=== PATIENT | female | born 1945 | race African-American/Black ===

== ENCOUNTER 2018-06-12 23:12 | Emergency (ER) | payer MEDICARE ==
--- NOTE | 2018-06-12 23:47 | ER Document Report ---
ED Hand/Wrist Injury - General Chief Complaint: Finger Injury Stated Complaint: FINGER PAIN Time Seen by Provider: 06/12/18 23:32 Mode of Arrival: Ambulatory Information source: Patient, Relative Notes: Patient is a 72-year-old female that comes to the emergency room brought by her son because her left index finger has a ring that she cannot get off of it. Patient states that it is 3 individual gold ring bands that got stuck on her finger yesterday and she has attempted multiple different ways to get it off and it is not getting better and swelling more and she is in excruciating pain. Patient is a history of hypertension and diabetes and she was afraid she was going to lose her finger. TRAVEL OUTSIDE OF THE [place] IN LAST 30 DAYS: No - HPI Injury to: Index finger Onset: Yesterday Where: Home Timing: Constant, Worse Quality of pain: Fullness, Pressure, Sharp, Stabbing, Throbbing Severity: Severe Pain Level: 5 Context: Swelling - Related Data Allergies/Adverse Reactions: bacitracin Allergy (Verified 06/12/18 23:15) iron Allergy (Verified 06/12/18 23:15) Past Medical History - General Information source: Patient, Relative - Social History Smoking Status: Never Smoker Cigarette use (# per day): No Chew tobacco use (# tins/day): No Smoking Education Provided: No Frequency of alcohol use: None Drug Abuse: None Lives with: Family Family History: Reviewed & Not Pertinent Review of Systems - Review of Systems Constitutional: No symptoms reported EENT: No symptoms reported Cardiovascular: No symptoms reported Respiratory: No symptoms reported Gastrointestinal: No symptoms reported Genitourinary: No symptoms reported Female Genitourinary: No symptoms reported Musculoskeletal: See HPI, Joint pain, Joint swelling Skin: No symptoms reported Hematologic/Lymphatic: No symptoms reported Neurological/Psychological: No symptoms reported -: Yes All other systems reviewed and negative Physical Exam - Vital signs Vitals: Temp Pulse Resp BP Pulse Ox 98.6 F 75 16 218/82 H 95 06/12/18 23:25 06/12/18 23:25 06/12/18 23:25 06/12/18 23:25 06/12/18 23:25 Interpretation: Hypertensive - Notes Notes: PHYSICAL EXAMINATION: GENERAL: Patient is a well-nourished well-developed 78-year-old female who is in moderate to severe distress at time of physical examination. Patient is in such pain that blood pressure is in excess of 218/82 currently. Patient's pain is derived from her left index finger where there is a ring that has gotten stuck on the finger since yesterday and is swollen to almost twice its normal size. HEAD: Atraumatic, normocephalic. LUNGS: Breath sounds clear to auscultation bilaterally and equal. No wheezes rales or rhonchi. HEART: Regular rate and rhythm without murmurs Female : deferred Musculoskeletal: Examination of the area of concern is patient's left index finger. Patient has the 3 rings stuck just below the knuckle. The swelling is severe best. Patient does have some cap refill in the distal tip of the left index finger but it is very slow. It is more than 3 seconds. The distal portion of the left index finger from the ring is cold and swollen and firm. Patient is having difficulty even flexing the tip slightly. NEUROLOGICAL: Normal speech, normal gait. Normal sensory, motor exams PSYCH: Anxious, scared SKIN: Area in question is cold swollen and tender somewhat mottled Course - Re-evaluation Re-evalutation: 06/12/18 23:53 Ring removal procedure Given patient's severe pain and discomfort and her anxiety level after evaluating the amount of swelling to the finger distally. While the nurse went to get the ring cutter I decided to use wire snips found in the office. Since these were very small individual rings and a band of 3 I was able to clip the very first 1 with the wire snaps and with 2 forceps I was then able to do the next one ascending with one snip and separate them the ring with the forceps. And you could see some color starting to come back into the finger. On the last and final snap I was able to do it with 1 sip of the wire cutters and use a forceps to separate it and stretch it out to get it over the knuckle. The rings were made of gold so made it relatively easy to cut and will be relatively easy for a shoulder to get it back into shape. Once the third ring was off patient's finger started to regain color and warmth. After approximately 5 minutes we rechecked a pulse ox on it and it read 98%. Patient' s relief was pretty much instant but took a little time to adjust. Reexam of the finger post 15 minutes shows swelling to be getting slightly better range of motion improving and color looking better. Patient tolerated the removal very well. There were no complications in getting off there was no skin skin broken with the wire steps. Patient feels much better. 06/13/18 00:36 Reexamination the patient after about 45 minutes to an hour after removing the rings shows resting comfortably. Still throbbing a little bit so have ordered her a 5 mg hydrocodone. Her son is driving her home. Patient's blood pressure was in excess of 212/80 on arrival and she then tells that she was unable to take her blood pressure medications this morning and just by her resting here it is on its way down. Though has not made great strides is 190/70 I feel comfortable enough to let her go home without having to treated here. I discussed this with the patient and the son they are in agreement and feel comfortable taking her home and taking her own medications when she gets there. - Vital Signs Vital signs: Temp Pulse Resp BP Pulse Ox 98.6 F 75 16 192/88 H 95 06/12/18 23:25 06/12/18 23:25 06/12/18 23:25 06/12/18 23:53 06/12/18 23:25 Discharge - Discharge Clinical Impression: Ring removal, Ring removal from finger Hypertension Qualifiers: Hypertension type: other secondary hypertension Qualified Code(s): I15.8 - Other secondary hypertension Condition: Stable Disposition: HOME, SELF-CARE Instructions: High Blood Pressure ([facility]) Additional Instructions: I do not have a handout on removing a ring for obstruction from the finger circulation. Basically you got here in time your circulation is normal your finger has normal function you should have no more problems with it. It may throbbing for a couple of days you may ice it down or use moist heat which ever feels better. You can take ibuprofen or Tylenol for the pain and discomfort. I apologize for having to cut your rings but they can be amended at a good [employer] and return to normal. Should you have any concerns or problems return to ER for a recheck. Please follow-up with your primary care to have him reevaluate your blood pressure sometime this week. Forms: Elevated Blood Pressure
[2018-06-13] MEDS ORDERED: HYDROCODONE/ACETAMINOPHEN 5-325 MG TABLET PO ONE (00:15)
[2018-06-13 01:13] VITALS: BP 218/91
== END 2018-06-13 01:18 | disposition home or self-care (01) ==
LOC: ER 23:12
DX: S60.451A Superficial foreign body of left index finger, initial encounter (principal); I15.8 Other secondary hypertension; M79.645 Pain in left finger(s); M79.89 Other specified soft tissue disorders; X58.XXXA Exposure to other specified factors, initial encounter; I10 Essential (primary) hypertension; E11.9 Type 2 diabetes mellitus without complications
CPT/HCPCS: 99283; A9270